=== PATIENT | female | born 1955 | race Caucasian/White ===

== ENCOUNTER 2018-07-25 11:01 | Emergency (ER) | payer MEDICAID ==
[~2018-07-25] VITALS: Ht 160 cm; Wt 73.5 kg
[2018-07-25 11:09] VITALS: BP 155/63
[2018-07-25 12:08] VITALS: BP 119/62
== END 2018-07-25 12:08 | disposition home or self-care (01) ==
LOC: MED 11:01
DX: S93.402A Sprain of unspecified ligament of left ankle, initial encounter (principal); W18.30XA Fall on same level, unspecified, initial encounter; Y93.89 Activity, other specified; Y92.89 Other specified places as the place of occurrence of the external cause; Y99.8 Other external cause status
CPT/HCPCS: 99282

== ENCOUNTER 2019-04-28 13:28 | Emergency (ER) | payer MEDICAID ==
[~2019-04-28] VITALS: Ht 154.9 cm; Wt 81.6 kg
[2019-04-28 13:30] VITALS: BP 164/93
--- NOTE | 2019-04-28 13:42 | NUR ---
PT AMB TO BED 8
--- NOTE | 2019-04-28 13:50 | NUR ---
C/O RIGHT BACK PAIN 04/17 X 1 WEEK. DENIES DYSURIA OR N/V/D. PATIENT STATES STARTED SUDDENLY. DENIES TRAUMA. NO OBVIOUS DEFORMITY. [id number]. VSS. BED IS DOWN, LOCKED, BED RAIL X 1, ERMD TO SEE PT. MED HX: HTN, DM,LEFT KIDNEY REMOVAL LAST AUG 2018, HIGH CHOLESTEROL GERD MED: SIMVASTATIN,LOSARTAN,ESOMEPRAZOLE,METFORMIN,ASPIRIN,VIT D 3
--- NOTE | 2019-04-28 13:58 | NUR ---
URINE COLLECTED AND DIPPED
--- NOTE | 2019-04-28 14:08 | NUR ---
DR PAL AT BEDSIDE
--- NOTE | 2019-04-28 14:26 | NUR ---
LAB AT BEDSIDE
[2019-04-28 14:33] LABS: APPEARANCE,URINE CLEAR (CLEAR); BILIRUBIN,URINE NEGATIVE (NEGATIVE); BLOOD, URINE NEGATIVE (NEGATIVE); COLOR,URINE YELLOW (YELLOW); LEUKOCYTE ESTERASE ,URINE NEGATIVE (NEGATIVE); NITRITE, URINE NEGATIVE (NEGATIVE); PH,URINE 5.5 (5.0-9.0); UGLUCOSE NEGATIVE (NEGATIVE)
[2019-04-28 14:38] LABS: BASOPHILS % (AUTO) 0.3 % (0.0-2.0); EOSINOPHILS # (AUTO) 0.1 K/uL (0-0.4); HEMATOCRIT 40.1 % (36-48); LYMPHOCYTES # (AUTO) 2.4 K/uL (2.5-16.5); LYMPHOCYTES % (AUTO) 33.6 % (20.5-51.1); MEAN CORPUSCULAR HEMOGLOBIN 24 pg (27-31); MEAN CORPUSCULAR HGB CONC 32 g/dL (33-37); MEAN CORPUSCULAR VOLUME 75.2 fL (80-94); MONOCYTES # (AUTO) 0.5 K/uL (0.8-1.0); MONOCYTES % (AUTO) 7.4 % (1.7-9.3); NEUTROPHILS # (AUTO) 4.2 K/uL (1.8-7.7); NEUTROPHILS % (AUTO) 57.7 % (42.2-75.2); PLATELET COUNT (AUTO) 263 K/uL (140-450); RED BLOOD CELL COUNT(AUTO) 5.33 MIL/uL (4.20-5.40); RED CELL DISTRIBUTION WIDTH 15.2 % (11.6-13.7); WHITE BLOOD COUNT (AUTO) 7.3 K/uL (4.8-10.8)
[2019-04-28 14:53] LABS: ANION GAP 13.3 (8-16); CARBON DIOXIDE 25.7 mmol/L (21-32)
[2019-04-28 15:01] LABS: TOTAL BILIRUBIN 0.4 mg/dL (0.0-1.0)
[2019-04-28 16:30] VITALS: BP 150/88
== END 2019-04-28 16:30 | disposition home or self-care (01) ==
LOC: MED 13:28
DX: M54.9 Dorsalgia, unspecified (principal); R10.31 Right lower quadrant pain; R10.32 Left lower quadrant pain; E11.9 Type 2 diabetes mellitus without complications; K21.9 Gastro-esophageal reflux disease without esophagitis; I10 Essential (primary) hypertension; E78.00 Pure hypercholesterolemia, unspecified
CPT/HCPCS: 36415; 80053; 81003; 85025; 99284

== ENCOUNTER 2022-05-29 12:11 | Emergency (ER) | payer MEDICAID, OTHER ==
[~2022-05-29] VITALS: Ht 154.9 cm; Wt 79.8 kg
--- NOTE | 2022-05-29 12:29 | NUR ---
Marilia saini in [facility] - 05/29/22 at 1323 by MED1 PT CARRIED TO BED 4.
[2022-05-29 13:11] VITALS: BP 201/105
--- NOTE | 2022-05-29 13:23 | NUR ---
PT AMB TO BED 5.
--- NOTE | 2022-05-29 13:53 | NUR ---
Dr. Boyd evaluating patient at bedside.
[2022-05-29] MEDS ORDERED: KETOROLAC 30 MG/ML VIAL IVP ONE (14:05)
[2022-05-29] MEDS ORDERED: ENALAPRILAT 2.5 MG/2 ML VIAL IVP ONE (14:05)
--- NOTE | 2022-05-29 14:07 | NUR ---
Radiology at bedside.
--- NOTE | 2022-05-29 14:34 | NUR ---
67 y/o female bib self with c/o right big toe pain x yesterday. Patient states she dropped a soda can on her toe and now has 8/10 throbbing pain. Patient is noted with fungus to right big toe nail and lateral blood bister to right big toe. Medical History: Bone cancer, HTN, HLD, Renal Failure, DM NKDA
[2022-05-29] MEDS ORDERED: IBUP-2213 PO (15:06)
[2022-05-29] MEDS ORDERED: ACET-8386 PO (15:06)
[2022-05-29 15:28] VITALS: BP 153/85
--- NOTE | 2022-05-29 15:28 | NUR ---
Patient discharged with v/s stable. Written and verbal after care instructions given. Patient alert, oriented and verbalized understanding of instructions. Ambulatory with steady gait. All questions addressed prior to discharge. ID band removed. Patient advised to follow up with PMD. Rx of Hydrocodone-Acetaminophen and Ibuprofen given. Opportunity to ask questions provided and answered.
--- NOTE | 2022-05-29 15:29 | NUR ---
The patient's care was reviewed and supervised by Aurelia Devries RN.
== END 2022-05-29 15:28 | disposition home or self-care (01) ==
LOC: MED 12:11
DX: S90.111A Contusion of right great toe without damage to nail, initial encounter (principal); I10 Essential (primary) hypertension; E11.9 Type 2 diabetes mellitus without complications; K21.9 Gastro-esophageal reflux disease without esophagitis; Z79.4 Long term (current) use of insulin; Z79.899 Other long term (current) drug therapy; Z85.830 Personal history of malignant neoplasm of bone; X58.XXXA Exposure to other specified factors, initial encounter; Y93.89 Activity, other specified; Y92.89 Other specified places as the place of occurrence of the external cause; Y99.8 Other external cause status
CPT/HCPCS: 73660; 82948; 96374; 99284; J1885; Q0092; J3490